=== PATIENT | male | born 1950 | race Caucasian/White ===

== ENCOUNTER 2017-07-26 07:54 | Day surgery (SDC) | payer MEDICAID ==
[2017-07-26 08:37] VITALS: TEMP 97
[2017-07-26] MEDS ORDERED: Propofol 10 mg/ml Inj (20 ML) ONE (09:02)
[2017-07-26 10:44] VITALS: O2SAT 99
[2017-07-26 10:45] VITALS: BP 130/75; PULSE 53; RESP 18
== END 2017-07-26 11:05 | disposition home or self-care (01) ==
LOC: C.ENDO 07:54
PROVIDERS: ATTEND Internal Medicine
DX: D12.0 Benign neoplasm of cecum (principal); D12.3 Benign neoplasm of transverse colon; D12.4 Benign neoplasm of descending colon; D12.5 Benign neoplasm of sigmoid colon; K63.89 Other specified diseases of intestine; K64.8 Other hemorrhoids; K57.90 Diverticulosis of intestine, part unspecified, without perforation or abscess without bleeding
CPT/HCPCS: 45385; 82948; 88305; J2704